=== PATIENT | male | born 1945 | race Caucasian/White ===

== ENCOUNTER 2022-09-29 16:51 | Emergency (ER) | payer MEDICARE, OTHER ==
[2022-09-29 18:46] LABS: BASOPHILS PERCENT AUTO 0.4 % (0.3-3.8); EOSINOPHILS ABSOLUTE AUTO 0.1 x10-3/uL (0.0-0.6); EOSINOPHILS PERCENT AUTO 1.7 % (0.1-6.8); HEMATOCRIT 42.8 % (38.3-50.1); HEMOGLOBIN 14.4 g/dL (12.9-17.7); LYMPHOCYTES ABSOLUTE AUTO 2.9 x10-3/uL (0.5-4.5); LYMPHOCYTES PERCENT AUTO 41.4 % (15.8-45.3); MEAN CORPUSCULAR HEMOGLOBIN 30.9 pg (27.0-33.3); MEAN CORPUSCULAR HGB CONC 33.6 g/dL (28.7-35.3); MEAN PLATELET VOLUME 7.7 fL (6.7-11.0); MONOCYTES ABSOLUTE AUTO 0.4 x10-3/uL (0.0-1.2); MONOCYTES PERCENT AUTO 5.6 % (5.5-15.2); NEUTROPHILS ABSOLUTE AUTO 3.6 x10-3/uL (1.7-6.9); NEUTROPHILS PERCENT AUTO 50.9 % (40.3-71.8); PLATELET COUNT,PLT 267 x10(3)uL (117-477); RED BLOOD CELL COUNT 4.65 x10(6)uL (3.90-5.90); RED CELL DISTRIBUTION WIDTH 14.7 % (12.4-15.0); WHITE BLOOD CELL COUNT,WBC 7.1 x10-3/uL (3.2-10.1)
[2022-09-29 18:48] LABS: APPEARANCE,URINE CLEAR (CLEAR); BILIRUBIN,URINE NEGATIVE (NEGATIVE); COLOR,URINE YELLOW (YELLOW); GLUCOSE,URINE NORMAL (NORMAL); KETONES,URINE NEGATIVE (NEGATIVE); LEUKOCYTE ESTERASE,URINE NEGATIVE (NEGATIVE); NITRITE,URINE NEGATIVE (NEGATIVE); OCCULT BLOOD,URINE NEGATIVE (NEGATIVE); PROTEIN,URINE NEGATIVE (NEGATIVE); UROBILINOGEN,URINE NORMAL (NEGATIVE)
[2022-09-29 18:49] LABS: BLOOD UREA NITROGEN,BUN 16 mg/dL (7-18); BUN/CREATININE RATIO 10.7 (9-20); CALCIUM 8.3 mg/dL (8.6-10.2); CARBON DIOXIDE,CO2 29 mmol/L (21-32); CHLORIDE,CL 102 mmol/L (100-110); CREATININE 1.5 mg/dL (0.70-1.30); ESTIMATED GFR 48 mL/min (>60); GLUCOSE RANDOM 101 mg/dL (80-116); POTASSIUM,K 4.2 mmol/L (3.5-5.3); SODIUM,NA 137 mmol/L (135-145)
[2022-09-29 18:49] LABS: BACTERIA,URINE FEW (NS); RBC,URINE NOT SEEN (0-5); SQUAMOUS EPITHELIAL CELLS,UR FEW (NS,R,O); WBC,URINE 0-5 (0-5)
[2022-09-29 18:56] LABS: A/G RATIO 1.1; ALANINE AMINOTRANSFERASE,ALT 31 U/L (12-36); ALBUMIN 3.7 g/dL (3.2-4.6); ALKALINE PHOSPHATASE 104 IU/L (56-112); ASPARTATE AMNIOTRANSFERASE,AST 21 IU/L (5-25); BILIRUBIN TOTAL 0.4 mg/dL (0.1-1.3); MAGNESIUM 2.2 mg/dL (1.8-2.5); PROTEIN TOTAL,TP 7.1 g/dL (6.0-8.0)
[2022-09-29 19:00] LABS: C-REACTIVE PROTEIN 0.12 mg/dL (<0.33); TROPONIN I 8.4 pg/mL (4.0-60.3)
[2022-09-29 19:48] LABS: INR 3.14 (1.00-1.24); PROTHROMBIN TIME 31.3 sec (9.0-11.1)
[2022-09-29 20:22] VITALS: BP 104/62; PULSE 83
== END 2022-09-29 20:21 | disposition home or self-care (01) ==
LOC: FB.ED 16:51
DX: E86.0 Dehydration (principal); R79.1 Abnormal coagulation profile; T50.905A Adverse effect of unspecified drugs, medicaments and biological substances, initial encounter; E78.00 Pure hypercholesterolemia, unspecified; E11.9 Type 2 diabetes mellitus without complications; F17.210 Nicotine dependence, cigarettes, uncomplicated; Z91.048 Other nonmedicinal substance allergy status; Z79.84 Long term (current) use of oral hypoglycemic drugs; Z79.899 Other long term (current) drug therapy
CPT/HCPCS: 36415; 71046; 80053; 81001; 83735; 84484; 85025; 85610; 86140; 93005; 93010; 99283; 99285

== ENCOUNTER 2024-11-06 11:50 | Emergency (ER) | payer OTHER ==
[2024-11-06] MEDS ORDERED: Sodium Chloride 0.9% 10 ML Syringe FLUSH PRN (12:03)
[2024-11-06 12:16] LABS: BASOPHILS ABSOLUTE AUTO 0.1 x10-3/uL (0.0-0.3); BASOPHILS PERCENT AUTO 0.8 % (0.3-3.8); EOSINOPHILS ABSOLUTE AUTO 0.1 x10-3/uL (0.0-0.6); EOSINOPHILS PERCENT AUTO 1.1 % (0.1-6.8); LYMPHOCYTES ABSOLUTE AUTO 2.7 x10-3/uL (0.5-4.5); LYMPHOCYTES PERCENT AUTO 38.0 % (15.8-45.3); MEAN PLATELET VOLUME 7.7 fL (6.7-11.0); MONOCYTES ABSOLUTE AUTO 0.4 x10-3/uL (0.0-1.2); MONOCYTES PERCENT AUTO 6.1 % (5.5-15.2); NEUTROPHILS ABSOLUTE AUTO 3.8 x10-3/uL (1.7-6.9); NEUTROPHILS PERCENT AUTO 54.0 % (40.3-71.8); PLATELET COUNT,PLT 345 x10(3)uL (117-477); RED BLOOD CELL COUNT 4.48 x10(6)uL (3.90-5.90); RED CELL DISTRIBUTION WIDTH 14.7 % (12.4-15.0); WHITE BLOOD CELL COUNT,WBC 7.1 x10-3/uL (3.2-10.1)
[2024-11-06 12:26] LABS: BLOOD UREA NITROGEN,BUN 23 mg/dL (7-18); CARBON DIOXIDE,CO2 27 mmol/L (21-32); CHLORIDE,CL 105 mmol/L (100-110); CREATININE 1.3 mg/dL (0.70-1.30); ESTIMATED GFR 56 mL/min (>60); GLUCOSE RANDOM 133 mg/dL (80-116); SODIUM,NA 137 mmol/L (135-145)
[2024-11-06 12:32] LABS: A/G RATIO 0.8; ALANINE AMINOTRANSFERASE,ALT 29 U/L (12-36); ASPARTATE AMNIOTRANSFERASE,AST 48 IU/L (5-25); BILIRUBIN TOTAL 0.8 mg/dL (0.1-1.3); PROTEIN TOTAL,TP 6.7 g/dL (6.0-8.0)
[2024-11-06 12:33] LABS: POTASSIUM,K 5.7 mmol/L (3.5-5.3)
[2024-11-06 12:36] LABS: INR 2.73 (1.00-1.24)
[2024-11-06 13:01] VITALS: BP 118/63; PULSE 90
[2024-11-06 13:27] LABS: APPEARANCE,URINE CLEAR (CLEAR); GLUCOSE,URINE NORMAL (NORMAL); OCCULT BLOOD,URINE MODERATE (NEGATIVE)
[2024-11-06 13:32] LABS: EPITHELIAL CELLS,URINE RARE
== END 2024-11-06 14:00 | disposition home or self-care (01) ==
LOC: FB.ED 11:50
DX: R55 Syncope and collapse (principal); E78.00 Pure hypercholesterolemia, unspecified; E11.9 Type 2 diabetes mellitus without complications; Z91.048 Other nonmedicinal substance allergy status; Z79.01 Long term (current) use of anticoagulants; Z79.899 Other long term (current) drug therapy
CPT/HCPCS: 36415; 70450; 71045; 80053; 81001; 84484; 85025; 85610; 86140; 93005; 96360; 99285; J7030